=== PATIENT | female | born 1940 | race Caucasian/White ===

== ENCOUNTER 2020-02-11 05:43 | Inpatient (IN) | payer MEDICARE ==
[2020-02-01 15:12] LABS: BASOPHILS # (AUTO) 0.1 X10'3 (0-0.2); BASOPHILS % (AUTO) 0.9 % (0-1); EOSINOPHILS # (AUTO) 0.2 X10'3 (0-0.9); EOSINOPHILS % (AUTO) 2.7 % (0-6); LYMPHOCYTES # (AUTO) 1.8 X10'3 (1.1-4.8); LYMPHOCYTES % (AUTO) 22.4 % (21-51); MEAN CORPUSCULAR HEMOGLOBIN 32.2 PG (27.0-31.0); MEAN CORPUSCULAR HGB CONC 34.2 g/dL (33.0-36.5); MEAN CORPUSCULAR VOLUME 94.1 FL (78-98); MEAN PLATELET VOLUME 8.3 FL (7.4-10.4); MONOCYTES # (AUTO) 0.8 X10'3 (0-0.9); MONOCYTES % (AUTO) 9.8 % (2-12); NEUTROPHILS # (AUTO) 5.2 X10'3 (1.8-7.7); NEUTROPHILS % (AUTO) 64.2 % (42-75); PRE OP HEMATOCRIT 39.2 % (35.0-45.0); PRE OP HEMOGLOBIN 13.4 g/dL (12.0-16.0); PRE OP PLATELET COUNT 288 X10'3 (140-440); RED BLOOD COUNT 4.16 X10'6 (4.20-5.60); RED CELL DISTRIBUTION WIDTH 14.5 % (11.5-14.5)
[2020-02-01 15:22] LABS: ALBUMIN 3.9 G/DL (3.4-5.0); ALKALINE PHOSPHATASE 93 IU/L (46-116); BLOOD UREA NITROGEN 26 MG/DL (7-18); CALCIUM 10.1 MG/DL (8.5-10.1); CHLORIDE 104 MMOL/L (99-107); CREATININE 1.13 MG/DL (0.40-0.90); PRE OP ALT 32 U/L (30-65); PRE OP ANION GAP 9 (8-16); PRE OP AST 30 U/L (10-37); PRE OP BILIRUB, TOTAL 0.6 MG/DL (0.0-1.0); PRE OP GLUCOSE 107 MG/DL (70-104); PRE OP SODIUM 142 MMOL/L (135-145); TOTAL CARBON DIOXIDE 29.1 MMOL/L (24-32); TOTAL PROTEIN 7.9 G/DL (6.4-8.2); eGFR 46 ML/MIN
[2020-02-01 15:28] LABS: PRE OP POTASSIUM 3.2 MMOL/L (3.4-5.1)
[2020-02-11] VITALS (19 sets, daily range): BP systolic 108–178; BP diastolic 44–93
[~2020-02-11] VITALS: Ht 154.9 cm; Wt 65.8 kg
[~2020-02-11 05:43] MED LIST: ACET-2319 PO; ALLO100T PO; AMLO10TA13 PO; ASCO-134 PO; ASPI-611 PO; ATEN-27 PO; ATOR40TA PO; CALC250T2 PO; CHLO25TA10 PO; CHOL400T32 PO; DOCUMENT DATE & TIME OF BETA-BLOCKER PO ONE; GINK120T4 PO; GLUC-95 PO; LOSA50TA3 PO; LUTE40CA PO; LYSI500T40 PO; MAGN400C PO; MULT-1085 PO; POTA20TA19 PO; SERT100T PO; SYN0.112T PO; UBID100C16 PO; VANCOMYCIN INJ 1000 MG in NORMAL SALINE 250ml IV.SOLN IV ONE; VITA-268 PO; VITA400C67 PO; ZINC50TA67 PO; cefazolin/dext.iso 2gm/100ml 100 ML IV ONE; famotidine 20mg tablet PO ONE; ringers solution, lacted 1,000 ML IV SCH; tranexamic acid inj. 660 MG in normal saline 100ml IV soln 100 ML IV ONE
[2020-02-11] MEDS ORDERED: ketorolac trometh. 30mg/ml inj. ONE (06:48)
[2020-02-11] MEDS ORDERED: ROPIVAcaine 0.5% (5mg/ml) 30ml vial ONE ×2 (06:48→11:01)
[2020-02-11] MEDS ORDERED: midazolam 2 mg/2 ml injection ONE (08:25)
[2020-02-11] MEDS ORDERED: fentaNYL/PF 50MCG/1 ML 2ML syringe ONE (08:25)
[2020-02-11] MEDS ORDERED: tranexamic acid inj. 650 MG in normal saline 100ml IV soln 100 ML IV ONE ×3 (08:35→14:00)
[2020-02-11] MEDS ORDERED: sevoflurane 250ml liquid IH ONE (09:16)
[2020-02-11] MEDS ORDERED: ringers solution, lacted 1,000 ML IV SCH (10:34)
[2020-02-11] MEDS ORDERED: ondansetron/PF 4mg/2ml inj IV PRN (10:35)
[2020-02-11] MEDS ORDERED: ROPIVAcaine 0.2% (10 MG/5 ML) BOLUS INJECTION INTERSCALE PRN (10:35)
[2020-02-11] MEDS ORDERED: HYDROmorphone inj. 0.5 MG/0.5 ML DISP.SYRIN IV PRN ×2 (10:35→11:30)
[2020-02-11] MEDS ORDERED: morphine 2 MG/ML inj. syringe IV PRN (10:35)
[2020-02-11] MEDS ORDERED: propofol inj 20 ML IV ONE (11:01)
[2020-02-11] MEDS ORDERED: dexamethasone sod phosphate 4mg/ml inj. ONE (11:01)
[2020-02-11] MEDS ORDERED: glycopyrrolate 0.2mg/ml inj ONE (11:01)
[2020-02-11] MEDS ORDERED: ondansetron/PF 4mg/2ml inj ONE (11:01)
[2020-02-11] MEDS ORDERED: LIDOcaine 1%/PF 5ML 10 MG/ML VIAL ONE (11:01)
--- NOTE | 2020-02-11 11:13 | NUR ---
Received from OR via BED, accompanied by Anesthesiologist DR BURNETTE and report given by Anesthesiologist. PT DROWSY, DENIES PAIN, RIGHT SHOULDER W/DRSG, ICE PACK, SHOULDER WRAP, SLING CDI, ISB CATHETER INTACT. Addendum: 02/11/20 at 1143 by Kaitlin Galvez RN Amended: Links added.
[2020-02-11] MEDS ORDERED: diphenhydrAMINE 25mg capsule PO PRN ×2 (11:30)
[2020-02-11] MEDS ORDERED: bisacodyl 10mg suppository rectal RC PRN (11:30)
[2020-02-11] MEDS ORDERED: oxyCODONE IR 5mg (immed. release) tablet PO PRN (11:30)
[2020-02-11] MEDS ORDERED: acetaminophen 325mg tablet PO PRN (11:30)
[2020-02-11] MEDS ORDERED: magnesium hydroxide 30ml (MOM) UD suspension PO PRN (11:30)
[2020-02-11] MEDS ORDERED: HYDROmorphone 1 mg/ml syringe IV PRN (11:30)
[2020-02-11] MEDS ORDERED: hydrALAZINE 20mg/ml inj. IV ONE ×2 (11:55)
[2020-02-11] MEDS: ROPIVAcaine 0.2%/PF PUMP/bolus 550 ML ADDCANAL SCH (12:18)
--- NOTE | 2020-02-11 12:33 | NUR ---
Report called to receiving nurse. Transferred via BED, 1 BAG OF PERSONAL Belongings, CPAP, UPPER DENTURES SENT W/PT TO ROOM 4022B, TOBACCO GROWER AT BEDSIDE TO RECEIVE PT, BLL, CALL LIGHT GIVEN, SIDE RAILS UP X 2. Special Issues communicated to receiving nurse. YES. Addendum: 02/11/20 at 1249 by Kaitlin Galvez RN Amended: Links added.
[2020-02-11] MEDS: potassium cl 20mEq in 1/2 NS 1,000 ML IV SCH ×2 (16:56→19:27)
[2020-02-11] MEDS: ceFAZolin 1GM/D5W- ADD-VANTAGE 50 ML IV SCH (16:57)
--- NOTE | 2020-02-11 18:18 | NUR ---
Problems reprioritized. Patient report given, questions answered & plan of care reviewed with Arelis YOUNG.
--- NOTE | 2020-02-11 18:40 | NUR ---
Patient in room ORTHO 4022. I have received report from Emerald YOUNG and had the opportunity to ask questions and assume patient care.
[2020-02-11] MEDS ORDERED: vancomycin/NS 1 GM ADD-VANTAGE 250 ML IV SCH (20:00)
[2020-02-11] MEDS: aspirin 81mg tablet.DR PO SCH (20:18)
[2020-02-11] MEDS: losartan 50mg tablet PO SCH (20:18)
[2020-02-11] MEDS: acetaminophen 325mg tablet PO SCH (20:18)
[2020-02-11] MEDS: sennosides 8.6mg tablet PO SCH (20:19)
[2020-02-11] MEDS: atenolol 25mg tablet PO SCH (20:19)
[2020-02-11] MEDS: amLODIPine 5mg tablet PO SCH (20:19)
[2020-02-12] MEDS: ceFAZolin 1GM/D5W- ADD-VANTAGE 50 ML IV SCH (00:12)
[2020-02-12] MEDS: ROPIVAcaine 0.2%/PF PUMP/bolus 550 ML ADDCANAL SCH ×3 (00:15→05:09)
[2020-02-12 02:00] VITALS: BP 126/62
[2020-02-12] MEDS: oxyCODONE IR 5mg (immed. release) tablet PO PRN ×3 (02:43→12:47)
[2020-02-12] MEDS: potassium cl 20mEq in 1/2 NS 1,000 ML IV SCH ×2 (03:30→11:26)
[2020-02-12] MEDS: ondansetron/PF 4mg/2ml inj IV PRN ×2 (05:43→11:22)
[2020-02-12 06:00] VITALS: BP 132/63
--- NOTE | 2020-02-12 06:15 | NUR ---
Problems reprioritized. Patient report given, questions answered & plan of care reviewed with Emerald YOUNG.
--- NOTE | 2020-02-12 06:22 | NUR ---
Patient in room ORTHO 4022. I have received report from Arelis YOUNG and had the opportunity to ask questions and assume patient care.
[2020-02-12 06:45] LABS: BASOPHILS % (AUTO) 0.3 % (0-1); EOSINOPHILS % (AUTO) 0.2 % (0-6); HEMATOCRIT 32.7 % (35.0-45.0); HEMOGLOBIN 11.3 g/dl (12.0-16.0); LYMPHOCYTES # (AUTO) 1.2 X10'3 (1.1-4.8); LYMPHOCYTES % (AUTO) 9.5 % (21-51); MEAN CORPUSCULAR HEMOGLOBIN 32.2 PG (27.0-31.0); MEAN CORPUSCULAR HGB CONC 34.4 g/dL (33.0-36.5); MEAN CORPUSCULAR VOLUME 93.6 FL (78-98); MONOCYTES # (AUTO) 1.1 X10'3 (0-0.9); MONOCYTES % (AUTO) 8.9 % (2-12); NEUTROPHILS # (AUTO) 10.4 X10'3 (1.8-7.7); NEUTROPHILS % (AUTO) 81.1 % (42-75); PLATELET COUNT 247 X10'3 (140-440); RED BLOOD COUNT 3.49 X10'6 (4.20-5.60); RED CELL DISTRIBUTION WIDTH 14.4 % (11.5-14.5); WHITE BLOOD COUNT 12.9 X10'3 (4.5-11.0)
[2020-02-12 06:47] LABS: ANION GAP 10 (8-16); CHLORIDE 101 MMOL/L (99-107); POTASSIUM 3.4 MMOL/L (3.5-5.1); SODIUM 136 MMOL/L (135-145); TOTAL CARBON DIOXIDE 25.1 MMOL/L (24-32)
[2020-02-12] MEDS: metoclopramide 5 mg/ml inj IV PRN (07:36)
[2020-02-12] MEDS: multivitamins, therapeutics tablet PO SCH (07:41)
[2020-02-12] MEDS: chlorthalidone 25mg tablet PO SCH (07:41)
[2020-02-12] MEDS: calcium carbonate 500mg tablet PO SCH (07:41)
[2020-02-12] MEDS: vitamin E 400 unit capsule PO SCH (07:41)
[2020-02-12] MEDS: aspirin 325mg tablet PO SCH (07:41)
[2020-02-12] MEDS: levoTHYROXINE 100mcg tablet PO SCH (07:41)
[2020-02-12] MEDS: allopurinol 100mg tablet PO SCH (07:41)
[2020-02-12] MEDS: vitamin B comp w/Vit. C tab 1 TAB TABLET PO SCH (07:41)
[2020-02-12] MEDS: potassium Cl 20 mEq SR tablet PO SCH (07:42)
[2020-02-12] MEDS: ascorbic acid 500mg tablet PO SCH (07:42)
[2020-02-12] MEDS ORDERED: LYSINE HCL 500 MG PO SCH (08:00)
[2020-02-12] MEDS: sertraline 50mg tablet PO SCH (08:00)
[2020-02-12] MEDS ORDERED: non-formulary drug (Glucosamine HCl/Chondr Su A Na (Cidaflex Tablet) 1 TAB) PO SCH (08:00)
[2020-02-12] MEDS ORDERED: non-formulary drug (Ubidecarenone (Coq-10) 300 MG) PO SCH (08:00)
[2020-02-12 09:51] VITALS: BP 150/56
[2020-02-12 14:00] VITALS: BP 172/82
--- NOTE | 2020-02-12 14:02 | NUR ---
Joint consult: Attempted visit with pt at bedside however pt not available. Written protein education and RD contact information left at bedside. Pt currently on regular diet documented with average 50-75% PO intake of meals and 100% PO intake of milk. Will continue to follow and monitor need for additional protein. Addendum: 02/12/20 at [address] Amended: Links added.
--- NOTE | 2020-02-12 15:02 | NUR ---
Patient in room ORTHO 4022. I have received report from [place] and had the opportunity to ask questions and assume patient care.
[2020-02-12] MEDS ORDERED: scopolamine 1.5mg patch.TD72 TD ONE (15:10)
[2020-02-12] MEDS ORDERED: potassium Cl 20 mEq SR tablet PO PRN ×2 (15:10)
[2020-02-12] MEDS ORDERED: potassium CL 10mEq/100ml bag 100 ML IV PRN (15:10)
[2020-02-12 18:00] VITALS: BP 174/72
--- NOTE | 2020-02-12 18:00 | NUR ---
Problems reprioritized. Patient report given, questions answered & plan of care reviewed with Arelis.
--- NOTE | 2020-02-12 18:25 | NUR ---
Patient in room ORTHO 4022. I have received report from Christi YOUNG and had the opportunity to ask questions and assume patient care.
[2020-02-12] MEDS: acetaminophen 325mg tablet PO SCH (20:43)
[2020-02-12] MEDS: amLODIPine 5mg tablet PO SCH (20:44)
[2020-02-12] MEDS: atenolol 25mg tablet PO SCH (20:44)
[2020-02-12] MEDS: losartan 50mg tablet PO SCH (20:44)
[2020-02-12] MEDS: aspirin 81mg tablet.DR PO SCH (20:44)
[2020-02-12] MEDS: sennosides 8.6mg tablet PO SCH (20:44)
[2020-02-12 22:00] VITALS: BP 169/70
[2020-02-12] MEDS: HYDROcodone/acetaminophen 10/325mg tab PO PRN (23:24)
[2020-02-13] MEDS: HYDROcodone/acetaminophen 10/325mg tab PO PRN (04:45)
[2020-02-13 06:00] VITALS: BP 160/62
[2020-02-13 06:06] LABS: BASOPHILS % (AUTO) 0.2 % (0-1); EOSINOPHILS % (AUTO) 0.2 % (0-6); HEMATOCRIT 33.5 % (35.0-45.0); HEMOGLOBIN 11.5 g/dl (12.0-16.0); LYMPHOCYTES % (AUTO) 7.5 % (21-51); MEAN CORPUSCULAR HEMOGLOBIN 31.7 PG (27.0-31.0); MEAN CORPUSCULAR HGB CONC 34.2 g/dL (33.0-36.5); MEAN CORPUSCULAR VOLUME 92.8 FL (78-98); MEAN PLATELET VOLUME 9.6 FL (7.4-10.4); MONOCYTES % (AUTO) 7.5 % (2-12); NEUTROPHILS # (AUTO) 11.5 X10'3 (1.8-7.7); NEUTROPHILS % (AUTO) 84.6 % (42-75); PLATELET COUNT 230 X10'3 (140-440); RED BLOOD COUNT 3.61 X10'6 (4.20-5.60); RED CELL DISTRIBUTION WIDTH 14.6 % (11.5-14.5); WHITE BLOOD COUNT 13.6 X10'3 (4.5-11.0)
--- NOTE | 2020-02-13 06:28 | NUR ---
Problems reprioritized. Patient report given, questions answered & plan of care reviewed with Yany YOUNG.
[2020-02-13] MEDS: potassium Cl 20 mEq SR tablet PO SCH (09:33)
[2020-02-13] MEDS: levoTHYROXINE 100mcg tablet PO SCH (09:33)
[2020-02-13] MEDS: chlorthalidone 25mg tablet PO SCH (09:33)
[2020-02-13] MEDS: vitamin B comp w/Vit. C tab 1 TAB TABLET PO SCH (09:34)
[2020-02-13] MEDS: ascorbic acid 500mg tablet PO SCH (09:34)
[2020-02-13] MEDS: multivitamins, therapeutics tablet PO SCH (09:34)
[2020-02-13] MEDS: calcium carbonate 500mg tablet PO SCH (09:34)
[2020-02-13] MEDS: aspirin 325mg tablet PO SCH (09:35)
[2020-02-13] MEDS: allopurinol 100mg tablet PO SCH (09:35)
[2020-02-13] MEDS: sertraline 50mg tablet PO SCH (09:35)
[2020-02-13] MEDS: vitamin E 400 unit capsule PO SCH (09:35)
[2020-02-13] MEDS: ROPIVAcaine 0.2%/PF PUMP/bolus 550 ML ADDCANAL SCH (09:44)
[2020-02-13] MEDS: ondansetron/PF 4mg/2ml inj IV PRN (09:46)
[2020-02-13 10:00] VITALS: BP 163/75
[2020-02-13] MEDS: metoclopramide 5 mg/ml inj IV PRN (10:23)
--- NOTE | 2020-02-13 13:45 | NUR ---
Received discharge orders from Dr. Gramajo. IV dc'd by Blanche [employer] dry cell assembly machine tender. Dressing change to Right Shoulder earlier today. Pt did not want to get Ropivicaine refilled by the Pharmacy prior to discharge. Reviewed discharge orders. Pt dc'd via w/c to private vehicle.
--- NOTE | 2020-02-14 14:42 | NUR ---
Case Management DC follow up: spoke to pt sister/Sierra via telephone. Reports feeling , Denies CP, emergent general pain, SOB, respiratory distress, NV, dizziness, syncope episodes, abd pain, C[place], blurry vision. Verbalizes understanding of medications and why prescribed. Taking as ordered, no ase noted r/t polypharmacy/new meds. verbalizes understanding of s/s that would warrant 9-11/ER visit for evaluation. Working w/ [facility] PT at this time. On Q pump DCd at Discharge. verbalizes understanding of post op after care/compiant. No s/s infection at surg site noted. No acute swelling, redness pain to RUE. elevate as needed. Acknowledges importance of scheduling/keeping appointments w/PCP/[facility] 03/10/2020/referrals/specialists/Stephanie 02/28/2020. Needs met, questions answered at DC. No further questions at this time.
== END 2020-02-13 13:45 | disposition home health service (06) | DRG 483 ==
LOC: PAS IN 05:43 → UNDOADMIN 05:43 → EDSTATUS 07:30 → PAS IN 11:27 → ORTHO 4S 12:36 → PAS IN 12:36
PROVIDERS: ADMIT Orthopaedic Surgery; ATTEND Orthopaedic Surgery
PROC: 0RRJ00Z Replacement of Right Shoulder Joint with Reverse Ball and Socket Synthetic Substitute, Open Approach (ICD-10-PCS; principal; 2020-02-11 09:16)
DX: M75.121 Complete rotator cuff tear or rupture of right shoulder, not specified as traumatic (principal); D62 Acute posthemorrhagic anemia; M19.011 Primary osteoarthritis, right shoulder; M25.511 Pain in right shoulder; I10 Essential (primary) hypertension
CPT/HCPCS: 36415; 80051; 80053; 82948; 85025; 87081; 93005; 97110; 97112; 97116; 97161; 97530; A4565; A4618; A7000; C1776; G0378; J0360; J0690; J1100; J1170; J1885; J2250; J2270; J2405; J2704; J2765; J2795; J3010; J3370; J3480; J3490; J7120

== ENCOUNTER 2023-07-15 11:22 | Day surgery (SDC) | payer MEDICARE ==
[2023-07-11 11:48] LABS: APTT 23 SECONDS (22-32); PROTHROMBIN TIME 10.7 SECONDS (9.0-12.0)
[2023-07-11 11:49] LABS: ALBUMIN 3.9 G/DL (3.4-5.0); ANION GAP 8 (8-16); BLOOD UREA NITROGEN 22 MG/DL (7-18); BUN/CREATININE RATIO 23.4 (10.0-20.0); CALCIUM 9.6 MG/DL (8.5-10.1); CHLORIDE 105 MMOL/L (99-107); CHOL/HDL RATIO 2.2 (0.00-4.99); CHOLESTEROL 158 MG/DL (0-200); CREATININE 0.94 MG/DL (0.40-0.90); GLUCOSE 104 MG/DL (70-104); HDL CHOLESTEROL 71 MG/DL (35-60); LDL CHOLESTEROL 68 MG/DL (50-100); POTASSIUM 3.7 MMOL/L (3.5-5.1); SODIUM 143 MMOL/L (135-145); TOTAL CARBON DIOXIDE 30.4 MMOL/L (24-32); TRIGLYCERIDES 66 MG/DL (20-135); eGFR 57 ML/MIN
[2023-07-11 11:56] LABS: BASOPHILS # (AUTO) 0.1 X10'3 (0-0.2); BASOPHILS % (AUTO) 0.6 % (0-1); EOSINOPHILS # (AUTO) 0.3 X10'3 (0-0.9); EOSINOPHILS % (AUTO) 3.4 % (0-6); HEMATOCRIT 42.6 % (35.0-45.0); HEMOGLOBIN 14.2 g/dl (12.0-16.0); LYMPHOCYTES # (AUTO) 1.1 X10'3 (1.1-4.8); LYMPHOCYTES % (AUTO) 13.6 % (21-51); MEAN CORPUSCULAR HEMOGLOBIN 31.5 PG (27.0-31.0); MEAN CORPUSCULAR HGB CONC 33.3 g/dL (33.0-36.5); MEAN CORPUSCULAR VOLUME 94.6 FL (78-98); MEAN PLATELET VOLUME 8.2 FL (7.4-10.4); MONOCYTES # (AUTO) 0.7 X10'3 (0-0.9); MONOCYTES % (AUTO) 9.1 % (2-12); NEUTROPHILS # (AUTO) 5.7 X10'3 (1.8-7.7); NEUTROPHILS % (AUTO) 73.3 % (42-75); PLATELET COUNT 217 X10'3 (140-440); WHITE BLOOD COUNT 7.8 X10'3 (4.5-11.0)
[~2023-07-15] VITALS: Ht 177.8 cm; Wt 59.1 kg
[2023-07-15] VITALS (14 sets, daily range): BP systolic 162–203; BP diastolic 83–106; PULSE 61–86; RESP 12–20; TEMP 98.4; O2SAT 92–94
[~2023-07-15 11:22] MED LIST changes: -ACET-2319 PO; -ALLO100T PO; +ALLO300T2 PO; -AMLO10TA13 PO; +AMLO5TAB16 PO; -ASCO-134 PO; +ASCO500C17 PO; -ASPI-611 PO; +ASPI81TA52 PO; +ATEN-169 PO; -ATEN-27 PO; -ATOR40TA PO; +ATOR40TA72 PO; +CALC-825 PO; -CALC250T2 PO; -CHOL400T32 PO; -DOCUMENT DATE & TIME OF BETA-BLOCKER PO ONE; -GINK120T4 PO; -GLUC-95 PO; +LEVO50TA8 PO; +LOSA100T58 PO; -LOSA50TA3 PO; -LUTE40CA PO; -LYSI500T40 PO; -MAGN400C PO; -MULT-1085 PO; +MULT-227 PO; +OMEG10006 PO; +POTA-207 PO; -POTA20TA19 PO; +SERT-433 PO; -SERT100T PO; -SYN0.112T PO; -UBID100C16 PO; -VANCOMYCIN INJ 1000 MG in NORMAL SALINE 250ml IV.SOLN IV ONE; -VITA-268 PO; -ZINC50TA67 PO; -cefazolin/dext.iso 2gm/100ml 100 ML IV ONE; -famotidine 20mg tablet PO ONE; -ringers solution, lacted 1,000 ML IV SCH; -tranexamic acid inj. 660 MG in normal saline 100ml IV soln 100 ML IV ONE
[2023-07-15] MEDS ORDERED: diphenhydrAMINE 25mg capsule PO PRN (11:40)
[2023-07-15] MEDS ORDERED: normal saline 1,000 ML IV SCH (11:40)
[2023-07-15] MEDS ORDERED: LORazepam 0.5 MG tablet PO PRN (11:40)
[2023-07-15] MEDS ORDERED: CLON0.5T54 PO (12:18)
[2023-07-15] MEDS ORDERED: SERT-434 PO (12:18)
[2023-07-15] MEDS ORDERED: DOCU-148 PO (12:18)
[2023-07-15] MEDS ORDERED: MORP-92 PO (12:18)
[2023-07-15] MEDS ORDERED: GABA-535 PO (12:18)
[2023-07-15] MEDS ORDERED: HYDR-3972 PO (12:18)
[2023-07-15] MEDS ORDERED: LEVO100T9 PO (12:18)
[2023-07-15] MEDS ORDERED: LIDOcaine 1% (10mg/ml) 2ml vial ONE (12:56)
[2023-07-15] MEDS ORDERED: nitroGLYCERIN-Tridil 50MG/D5W 250 ML IV ONE (12:56)
[2023-07-15] MEDS ORDERED: verapamil 2.5 mg/ml inj IV ONE (12:56)
[2023-07-15] MEDS ORDERED: midazolam 1 mg/ML 2ml injection ONE (12:57)
[2023-07-15] MEDS ORDERED: heparin 1,000unit/ml 10ml vial 10 ML ONE (12:57)
[2023-07-15] MEDS ORDERED: iohexol 350MG/ML 100ml bottle IV ONE (12:57)
[2023-07-15] MEDS ORDERED: fentaNYL/PF 50MCG/1 ML 2ML syringe ONE (12:57)
--- NOTE | 2023-07-15 13:30 | NUR ---
Spoke with Dr. Velma Larios re pt going back home to [facility] and not having anyone to stay with her. Pt states she has a medical alert necklace and daughter states she will call and check in on pt multiple times throughout today and tonight. Dr. Larios okayed to proceed with procedure.
[2023-07-15 15:07] LABS: ISTAT HGB ART 12.6 g/dl (12.0-16.0); ISTAT Hct ART 37 %PCV (35-45); ISTAT O2 SATURATION ARTERIAL 83 % (95-98); ISTAT SOURCE ART
[2023-07-15] MEDS ORDERED: HYDROcodone/acetaminophen 5mg/325mg tablet PO PRN (15:40)
[2023-07-15] MEDS ORDERED: HYDROcodone/acetaminophen 10/325mg tab PO PRN (15:40)
[2023-07-15] MEDS ORDERED: hydrALAZINE 20mg/ml inj. IV ONE ×2 (15:50→18:15)
[2023-07-15 16:21] LABS: ISTAT HGB MIX 12.9 g/dl (12.0-16.0); ISTAT Hct MIX 38 %PCV (35-45); ISTAT O2 SATURATION MIX VENOUS 57 % (60-80); ISTAT SOURCE VEN
== END 2023-07-15 18:50 | disposition home or self-care (01) ==
LOC: SSTAY O 11:22
PROVIDERS: ATTEND Student in an Organized Health Care Education/Training Program
DX: I35.2 Nonrheumatic aortic (valve) stenosis with insufficiency (principal); I27.20 Pulmonary hypertension, unspecified; I65.29 Occlusion and stenosis of unspecified carotid artery; I10 Essential (primary) hypertension; E78.5 Hyperlipidemia, unspecified; E03.9 Hypothyroidism, unspecified; G47.33 Obstructive sleep apnea (adult) (pediatric); Z88.5 Allergy status to narcotic agent; Z88.1 Allergy status to other antibiotic agents; Z91.048 Other nonmedicinal substance allergy status; Z79.899 Other long term (current) drug therapy
CPT/HCPCS: 36415; 80048; 80061; 82803; 85014; 85025; 85610; 85730; 93460; 99152; 99153; J0360; J1644; J2250; J3010; J3490; J7030; Q9967; A6258; A6402; C1751; C1894

== ENCOUNTER 2025-01-25 10:40 | Outpatient (CLI) | payer MEDICARE ==
[~2025-01-25 10:40] MED LIST changes: -ASPI81TA52 PO; -CHLO25TA10 PO; +DOCU-148 PO; +GABA-535 PO; +HYDR-3972 PO; +IODIXANOL 320 MG/ML INFUS..BTL 100ML IV ONE; +LEVO100T9 PO; -LEVO50TA8 PO; +MORP-92 PO; -OMEG10006 PO; -POTA-207 PO; -SERT-433 PO; +SERT-434 PO; +TRIA1TAB3 PO; -VITA400C67 PO
[2025-01-25] MEDS ORDERED: POTA-192 PO (16:39)
[2025-01-25] MEDS ORDERED: FURO-150 PO (16:39)
== END 2025-01-25 23:59 | disposition home or self-care (01) ==
LOC: RAD 10:40
PROVIDERS: ATTEND Internal Medicine Cardiovascular Disease
DX: S22.000A Wedge compression fracture of unspecified thoracic vertebra, initial encounter for closed fracture (principal); I35.0 Nonrheumatic aortic (valve) stenosis; R06.02 Shortness of breath; S32.000A Wedge compression fracture of unspecified lumbar vertebra, initial encounter for closed fracture; I65.29 Occlusion and stenosis of unspecified carotid artery; M85.88 Other specified disorders of bone density and structure, other site; K44.9 Diaphragmatic hernia without obstruction or gangrene; K76.89 Other specified diseases of liver; K86.2 Cyst of pancreas; X58.XXXA Exposure to other specified factors, initial encounter; Y93.89 Activity, other specified; Y92.89 Other specified places as the place of occurrence of the external cause; Y99.8 Other external cause status
CPT/HCPCS: 71046; 71275; 74174; 75572; Q9967

== ENCOUNTER 2025-01-25 15:12 | Observation (INO) | payer MEDICARE ==
[~2025-01-25] VITALS: Ht 147.3 cm; Wt 54.5 kg
[~2025-01-25 15:12] MED LIST changes: -IODIXANOL 320 MG/ML INFUS..BTL 100ML IV ONE
[2025-01-25] MEDS ORDERED: esmolol/sodium cl bag 250 ML IV SCH (15:55)
[2025-01-25 16:07] LABS: BASOPHILS % (AUTO) 0.4 % (0-1); EOSINOPHILS # (AUTO) 0.2 X10'3 (0-0.9); HEMATOCRIT 36.7 % (35.0-45.0); HEMOGLOBIN 11.6 g/dl (12.0-16.0); LYMPHOCYTES % (AUTO) 12.9 % (21-51); MEAN CORPUSCULAR HEMOGLOBIN 28.4 PG (27.0-31.0); MEAN CORPUSCULAR HGB CONC 31.8 g/dL (33.0-36.5); MEAN CORPUSCULAR VOLUME 89.3 FL (78-98); MEAN PLATELET VOLUME 7.5 FL (7.4-10.4); MONOCYTES # (AUTO) 0.7 X10'3 (0-0.9); MONOCYTES % (AUTO) 8.7 % (2-12); NEUTROPHILS # (AUTO) 5.8 X10'3 (1.8-7.7); PLATELET COUNT 290 X10'3 (140-440); RED BLOOD COUNT 4.11 X10'6 (4.20-5.60); RED CELL DISTRIBUTION WIDTH 17.7 % (11.5-14.5); WHITE BLOOD COUNT 7.8 X10'3 (4.5-11.0)
[2025-01-25] MEDS: losartan 50mg tablet PO STA (16:28)
[2025-01-25] MEDS: amLODIPine 5mg tablet PO ONE (16:29)
[2025-01-25] MEDS: atenolol 25mg tablet PO ONE (16:29)
[2025-01-25 16:39] LABS: ALANINE AMINOTRANSFERASE 36 U/L (12-78); ALBUMIN 3.7 G/DL (3.4-5.0); ALBUMIN/GLOBULIN RATIO 1.1 (1.1-1.5); ALKALINE PHOSPHATASE 122 IU/L (46-116); ANION GAP 7 (8-16); ASPARTATE AMINO TRANSFERASE 22 U/L (10-37); BILIRUBIN,TOTAL 0.3 MG/DL (0.1-1.0); BLOOD UREA NITROGEN 37 MG/DL (7-18); BUN/CREATININE RATIO 27.6 (10.0-20.0); CALCIUM 10.2 MG/DL (8.5-10.1); CHLORIDE 103 MMOL/L (99-107); CREATININE 1.34 MG/DL (0.40-0.90); GLUCOSE 101 MG/DL (70-104); POTASSIUM 3.7 MMOL/L (3.5-5.1); SODIUM 143 MMOL/L (135-145); TOTAL CARBON DIOXIDE 33.5 MMOL/L (24-32); TOTAL PROTEIN 7.2 G/DL (6.4-8.2); eCRCL 20 ML/MIN; eGFR 38 ML/MIN
[2025-01-25] MEDS ORDERED: FURO-150 PO (16:39)
[2025-01-25] MEDS ORDERED: POTA-192 PO (16:39)
[2025-01-25 16:46] LABS: PRO BRAIN NATRIURETIC PEPTIDE 1314 PG/ML (0-450)
[2025-01-25 17:01] LABS: PROTHROMBIN TIME 10.6 SECONDS (9.0-12.0)
[2025-01-25] MEDS ORDERED: potassium Cl 40MEQ/1/2NS 520ml 520 ML IV PRN (17:45)
[2025-01-25] MEDS ORDERED: acetaminophen 325mg tablet PO PRN (17:45)
[2025-01-25] MEDS ORDERED: ondansetron/PF 4mg/2ml inj IV PRN (17:45)
[2025-01-25] MEDS ORDERED: magnesium Cl slow-release 64mg tablet PO PRN (17:45)
[2025-01-25] MEDS ORDERED: magnesium sulf-water 2g/50mL 50 ML IV PRN (17:45)
[2025-01-25] MEDS ORDERED: magnesium sulf-water 4G/100mL 100 ML IV PRN (17:45)
[2025-01-25] MEDS ORDERED: HYDROcodone/acetaminophen 5mg/325mg tablet PO PRN (17:45)
[2025-01-25] MEDS ORDERED: potassium Cl 20 mEq SR tablet PO PRN ×2 (17:45)
[2025-01-25] MEDS ORDERED: amLODIPine 5mg tablet PO SCH (18:05)
[2025-01-25] MEDS: levoTHYROXINE 100mcg tablet PO SCH (18:30)
[2025-01-25] MEDS: allopurinol 300 MG tablet PO SCH (18:30)
[2025-01-25] MEDS: morphine ER 15mg tablet PO SCH (18:30)
[2025-01-25] MEDS: docusate sod 100mg capsule PO SCH (19:35)
[2025-01-25] MEDS: K and/or MAG REPLACEMENT MC SCH (19:36)
[2025-01-25] MEDS: hydrALAZINE 20mg/ml inj. IV SCH (19:59)
[2025-01-25] MEDS: gabapentin 400mg capsule PO SCH (20:47)
[2025-01-25] MEDS ORDERED: atenolol 25mg tablet PO SCH (21:00)
[2025-01-26 03:56] LABS: BASOPHILS # (AUTO) 0.1 X10'3 (0-0.2); BASOPHILS % (AUTO) 0.9 % (0-1); EOSINOPHILS # (AUTO) 0.3 X10'3 (0-0.9); HEMATOCRIT 31.7 % (35.0-45.0); HEMOGLOBIN 10.4 g/dl (12.0-16.0); LYMPHOCYTES # (AUTO) 0.8 X10'3 (1.1-4.8); LYMPHOCYTES % (AUTO) 10.3 % (21-51); MEAN CORPUSCULAR HEMOGLOBIN 28.5 PG (27.0-31.0); MEAN CORPUSCULAR HGB CONC 32.7 g/dL (33.0-36.5); MEAN CORPUSCULAR VOLUME 87.3 FL (78-98); MEAN PLATELET VOLUME 7.6 FL (7.4-10.4); MONOCYTES # (AUTO) 0.7 X10'3 (0-0.9); MONOCYTES % (AUTO) 8.8 % (2-12); NEUTROPHILS # (AUTO) 5.6 X10'3 (1.8-7.7); PLATELET COUNT 294 X10'3 (140-440); RED BLOOD COUNT 3.63 X10'6 (4.20-5.60); RED CELL DISTRIBUTION WIDTH 17.6 % (11.5-14.5); WHITE BLOOD COUNT 7.4 X10'3 (4.5-11.0)
[2025-01-26 04:08] LABS: ANION GAP 4 (8-16); BLOOD UREA NITROGEN 31 MG/DL (7-18); BUN/CREATININE RATIO 28.7 (10.0-20.0); CALCIUM 9.6 MG/DL (8.5-10.1); CHLORIDE 102 MMOL/L (99-107); CREATININE 1.08 MG/DL (0.40-0.90); GLUCOSE 111 MG/DL (70-104); MAGNESIUM 1.9 MG/DL (1.5-2.4); POTASSIUM 3.6 MMOL/L (3.5-5.1); SODIUM 139 MMOL/L (135-145); TOTAL CARBON DIOXIDE 33.1 MMOL/L (24-32); eCRCL 25 ML/MIN; eGFR 48 ML/MIN
[2025-01-26] MEDS: losartan 50mg tablet PO SCH (08:32)
[2025-01-26] MEDS: ascorbic acid 500mg tablet PO SCH (08:32)
[2025-01-26] MEDS: sertraline 50mg tablet PO SCH (08:32)
[2025-01-26] MEDS: atorvastatin 20mg tablet PO SCH (08:33)
[2025-01-26] MEDS: multivitamins, therapeutics tablet PO SCH (08:33)
[2025-01-26] MEDS: amLODIPine 5mg tablet PO SCH (08:33)
[2025-01-26 12:00] VITALS: RESP 14; O2SAT 95
[2025-01-26 12:55] VITALS: BP 114/57; PULSE 93; RESP 15; TEMP 98.1; O2SAT 94
[2025-01-26 15:43] VITALS: BP 108/60; PULSE 90; RESP 12; TEMP 98.3; O2SAT 94
[2025-01-26] MEDS ORDERED: atenolol 25mg tablet PO SCH (21:00)
== END 2025-01-26 17:15 | disposition home or self-care (01) ==
LOC: ER 15:13 → INTOOBSV 17:59 → ED HOLD 17:59
PROVIDERS: ADMIT Internal Medicine; ATTEND Internal Medicine
DX: I71.019 Dissection of thoracic aorta, unspecified (principal); I35.0 Nonrheumatic aortic (valve) stenosis; E03.9 Hypothyroidism, unspecified; M10.9 Gout, unspecified; I11.0 Hypertensive heart disease with heart failure; I50.9 Heart failure, unspecified; K44.9 Diaphragmatic hernia without obstruction or gangrene; M48.50XA Collapsed vertebra, not elsewhere classified, site unspecified, initial encounter for fracture; E27.8 Other specified disorders of adrenal gland; Z88.5 Allergy status to narcotic agent; Z88.8 Allergy status to other drugs, medicaments and biological substances; Z79.899 Other long term (current) drug therapy
CPT/HCPCS: 71046; 71275; 74174; 75572; 80048; 80053; 83735; 83880; 84484; 85610; 93005; 99285; G0378; Q9967; 36415; 85025; 87081; J0360

== ENCOUNTER → 2025-01-27 | Outpatient (CLI) | payer MEDICARE ==
[2025-01-25 11:31] LABS: BASOPHILS % (AUTO) 0.5 % (0-1); EOSINOPHILS # (AUTO) 0.3 X10'3 (0-0.9); EOSINOPHILS % (AUTO) 3.6 % (0-6); HEMATOCRIT 34.3 % (35.0-45.0); HEMOGLOBIN 11.2 g/dl (12.0-16.0); LYMPHOCYTES # (AUTO) 1.2 X10'3 (1.1-4.8); LYMPHOCYTES % (AUTO) 15.3 % (21-51); MEAN CORPUSCULAR HEMOGLOBIN 28.7 PG (27.0-31.0); MEAN CORPUSCULAR HGB CONC 32.8 g/dL (33.0-36.5); MEAN CORPUSCULAR VOLUME 87.7 FL (78-98); MEAN PLATELET VOLUME 7.8 FL (7.4-10.4); MONOCYTES # (AUTO) 0.7 X10'3 (0-0.9); MONOCYTES % (AUTO) 9.1 % (2-12); NEUTROPHILS # (AUTO) 5.5 X10'3 (1.8-7.7); NEUTROPHILS % (AUTO) 71.5 % (42-75); PLATELET COUNT 341 X10'3 (140-440); RED BLOOD COUNT 3.91 X10'6 (4.20-5.60); RED CELL DISTRIBUTION WIDTH 17.6 % (11.5-14.5); WHITE BLOOD COUNT 7.7 X10'3 (4.5-11.0)
[2025-01-25 11:42] LABS: APTT 27 SECONDS (22-32); PROTHROMBIN TIME 10.4 SECONDS (9.0-12.0)
[2025-01-25 13:02] LABS: ALANINE AMINOTRANSFERASE 31 U/L (12-78); ALBUMIN 3.7 G/DL (3.4-5.0); ALKALINE PHOSPHATASE 120 IU/L (46-116); ANION GAP 9 (8-16); ASPARTATE AMINO TRANSFERASE 30 U/L (10-37); BILIRUBIN,TOTAL 0.2 MG/DL (0.1-1.0); BLOOD UREA NITROGEN 37 MG/DL (7-18); BUN/CREATININE RATIO 24.7 (10.0-20.0); CALCIUM 10.1 MG/DL (8.5-10.1); CHLORIDE 103 MMOL/L (99-107); GLUCOSE 104 MG/DL (70-104); POTASSIUM 3.8 MMOL/L (3.5-5.1); PRO BRAIN NATRIURETIC PEPTIDE 1771 PG/ML (0-450); SODIUM 143 MMOL/L (135-145); TOTAL PROTEIN 7.3 G/DL (6.4-8.2); eGFR 33 ML/MIN
[~2025-01-27] VITALS: Ht 147.3 cm; Wt 52.8 kg
[~2025-01-27] MED LIST changes: +FURO-150 PO; +POTA-192 PO; -TRIA1TAB3 PO
[2025-01-27 15:15] VITALS: BP 156/65; PULSE 63; RESP 16; TEMP 97.5; O2SAT 95
== END | disposition home or self-care (01) ==
LOC: TAVR 09:25
PROVIDERS: ATTEND Internal Medicine Cardiovascular Disease
DX: I35.0 Nonrheumatic aortic (valve) stenosis (principal); R06.02 Shortness of breath; I65.29 Occlusion and stenosis of unspecified carotid artery
CPT/HCPCS: 36415; 80053; 83880; 85025; 85610; 85730; J7030

== ENCOUNTER 2025-04-08 17:05 | Emergency (ER) | payer MEDICARE ==
[~2025-04-08] VITALS: Ht 149.9 cm; Wt 55.0 kg
[~2025-04-08 17:05] MED LIST changes: -AMLO5TAB16 PO; -ATEN-169 PO; +METO-395 PO
--- NOTE | 2025-04-08 17:27 | ELECTROCARDIOGRAPH REPORT ---
[facility] Test Date: 2025-04-08 Test Time: 17:11:50 Pat Name: GOLDEN CABRAL Department: EMERGENCY ROOM Patient ID: [id number] Room: Gender: F Frame Coverer: NOEMY : 1940 Requested By: NINA JULIEN Order Number: [id number] Reading MD: Measurements Intervals Bock Rate: 78 P: 57 ID: [id number] QRS: 38 QRSD: 93 T: 57 QT: 413 QTc: 471 Interpretive Statements Sinus rhythm Atrial premature complexes Probable left atrial enlargement LVH with secondary repolarization abnormality Baseline wander in lead(s) II,III,aVF,V3 Please click the below link to view image of tracing.
[2025-04-08 18:37] LABS: BASOPHILS % (AUTO) 0.6 % (0-1); EOSINOPHILS # (AUTO) 0.2 X10'3 (0-0.9); EOSINOPHILS % (AUTO) 2.4 % (0-6); HEMATOCRIT 32.2 % (35.0-45.0); HEMOGLOBIN 10.5 g/dl (12.0-16.0); LYMPHOCYTES # (AUTO) 0.5 X10'3 (1.1-4.8); LYMPHOCYTES % (AUTO) 6.1 % (21-51); MEAN CORPUSCULAR HEMOGLOBIN 28.1 PG (27.0-31.0); MEAN CORPUSCULAR HGB CONC 32.6 g/dL (33.0-36.5); MEAN CORPUSCULAR VOLUME 86.4 FL (78-98); MEAN PLATELET VOLUME 7.7 FL (7.4-10.4); MONOCYTES # (AUTO) 0.7 X10'3 (0-0.9); MONOCYTES % (AUTO) 8.1 % (2-12); NEUTROPHILS # (AUTO) 6.8 X10'3 (1.8-7.7); NEUTROPHILS % (AUTO) 82.8 % (42-75); PLATELET COUNT 298 X10'3 (140-440); RED BLOOD COUNT 3.73 X10'6 (4.20-5.60); RED CELL DISTRIBUTION WIDTH 17.7 % (11.5-14.5); WHITE BLOOD COUNT 8.2 X10'3 (4.5-11.0)
[2025-04-08 18:50] LABS: ALANINE AMINOTRANSFERASE 38 U/L (12-78); ALBUMIN 3.2 G/DL (3.4-5.0); ALBUMIN/GLOBULIN RATIO 1.1 (1.1-1.5); ALKALINE PHOSPHATASE 103 IU/L (46-116); ANION GAP 7 (8-16); ASPARTATE AMINO TRANSFERASE 22 U/L (10-37); BILIRUBIN,TOTAL 0.4 MG/DL (0.1-1.0); BLOOD UREA NITROGEN 25 MG/DL (7-18); BUN/CREATININE RATIO 32.9 (10.0-20.0); CALCIUM 8.9 MG/DL (8.5-10.1); CHLORIDE 106 MMOL/L (99-107); CREATININE 0.76 MG/DL (0.40-0.90); GLUCOSE 137 MG/DL (70-104); POTASSIUM 3.1 MMOL/L (3.5-5.1); SODIUM 144 MMOL/L (135-145); TOTAL CARBON DIOXIDE 30.8 MMOL/L (24-32); TOTAL PROTEIN 6.1 G/DL (6.4-8.2); eCRCL 37 ML/MIN; eGFR 72 ML/MIN
[2025-04-08 19:38] LABS: PRO BRAIN NATRIURETIC PEPTIDE 10678 PG/ML (0-450)
[2025-04-08 20:13] LABS: BILIRUBIN,URINE NEGATIVE (Neg); CLARITY,URINE CLEAR (Clear); COLOR,URINE YELLOW (Yellow); GLUCOSE, URINE NEGATIVE (Neg); KETONES,URINE NEGATIVE (Neg); LEUKOCYTE ESTERASE ,URINE NEGATIVE (Neg); NITRITES, URINE NEGATIVE (Neg); OCCULT BLOOD,URINE NEGATIVE (Neg); PROTEIN,URINE 30 mg/dl (Neg); UROBILINOGEN,URINE 0.2 E.U/dL (0.2-1.0)
[2025-04-08 20:31] LABS: UA COLLECTION TYPE CLN CATCH MIDSTREAM
[2025-04-08 20:39] LABS: BACTERIA,URINE NONE SEEN /HPF (Neg); HYALINE CASTS 0-3 /LPF (NEGATIVE); RBC,URINE NONE SEEN /HPF (0-2); SQUAMOUS EPITHELIAL CELL,UR FEW /LPF (FEW); WBC,URINE NONE SEEN /HPF (0-4)
[2025-04-08 20:40] LABS: YEAST FEW /HPF (NEGATIVE)
--- NOTE | 2025-04-08 21:50 | RADIOLOGY REPORT ---
Clinical History sob Comparison CHEST XRAY on 01/25/2025, 2 images. Technique: A single AP/PA chest radiograph was provided for review. Without Contrast GOLDEN CABRAL, [id number] FINDINGS: Lungs: Hypoexpanded lungs without pneumothorax, focal consolidation or mass. blunting of the left la teral costophrenic angle, scarring versus effusion. Heart: Normal in size and configuration. Mediastinum: a double shadow over the cardiac silhouette may represent a hiatal hernia. Vasculature: Within normal limits. Tubes/lines: None. Osseous structures: No evidence for acute fracture. status post right shoulder total arthroplasty. Surgical clips in the axillas bilaterally. Possibly absent right breast. IMPRESSION: Low lung volumes. possible moderate to large sized hiatal hernia. Status post right shoulder arthroplasty. Normal pulmonary vasculature. Suspect right mastectomy and bilateral axillary surgeries. Small left effusion or scarring. This report was electronically signed by Hema Doyle MD on 04/08/2025 9:46:55 PM.
--- NOTE | 2025-04-08 22:14 | Physician Documentation ---
History of Present Illness ~ Chief Complaint: See Chief Complaint Stated Complaint: UNCONTROLLED BLADDER Time Seen by MD: 18:02 Primary Medical Doctor: Dr. Larios Mode of Arrival: EMS HPI 84 year old female who was recently discharged from our facility on lasix, with history of pulmonary hypertension and aortic stenosis. She was sent home on lasix and when I interview her she reports that she was urinating frequently and feeling short of breath. She deneis fever, N/V/D, chest pain. Medication Reconciliation Allergies: Coded Allergies: Tetracyclines (Unverified Allergy, Intermediate, RASH, 01/25/25) adhesive tape (Unverified Allergy, Intermediate, RASH + WILTS, 01/25/25) codeine (Unverified Allergy, Intermediate, RASH, 01/25/25) Scheduled Allopurinol (Allopurinol), 1 TAB PO DAILY, (Reported) Ascorbic Acid (Vitamin C), 2 CAP PO DAILY, (Reported) Atorvastatin Calcium (Atorvastatin Calcium), 1 TAB PO DAILY, (Reported) Calcium Citrate/Vitamin D3 (Calcium Cit-Vit D 250-200 Tab), 1 TAB PO DAILY, (Reported) Docusate Sodium (Colace), 1 CAP PO DAILY, (Reported) Furosemide* (Lasix*), 1 TAB PO BID Gabapentin (Gabapentin), 1 CAP PO BID, (Reported) Hydrocodone Bit/Acetaminophen (Hydrocodon-Acetaminophn 10-325 tablet), 1 TAB PO DAILY, (Reported) Levothyroxine Sodium (Levothyroxine Sodium), 1 TAB PO DAILY, (Reported) Losartan Potassium (Losartan Potassium), 1 TAB PO DAILY, (Reported) Metoprolol Succinate (Metoprolol Succinate), 1 TAB PO DAILY Morphine Sulfate (Morphine Sulfate Er), 1 TAB PO DAILY, (Reported) Multivitamins (Multiple Vitamin), 1 TAB PO DAILY, (Reported) Potassium Chloride (Klor-Con), 2 TAB PO DAILY Sertraline HCl (Sertraline HCl), 1 TAB PO DAILY, (Reported) Discontinued Medications Amlodipine Besylate (Amlodipine Besylate), 1 TAB PO DAILY, (Reported) Atenolol (Tenormin), 0.5 TAB PO HS, (Reported) Past Medical History Past Medical History: *CARDIOVASCULAR* Past Surgical History: no surgical history Patient History: Patient reports no known family medical history. Alcohol Use: None Drug Use: none Lives In: Home Review of Systems All Other Systems at this time: Reviewed and Negative Physical Exam Vital Signs: RN Vital Signs have been reviewed: Yes, Temperature: 99.4, Source: Oral, Heart Rate: 71, Respiratory Rate: 24, BP: 162/80, Pulse Oximetry: 98, Weight: 55.000 Oxygen Flow Rate: 4.0 Physical Exam HEENT: PERRL, moist oral mucosa, EOMI Pulmonary: No respiratory distress Cardiac: RRR, no murmur, rub or gallop GI: nondistended, soft, nontender, no guarding, no rebound MSK: no deformity Skin: w/d/i, no rash Neuro: alert, nonfocal Psych: normal affect Progress Results/Orders Results/Orders Orders - TERE MASSEY MD Chest,Single View (04/08/25 18:27) Page Hospitalist (04/08/25 ) Page Hospitalist (04/08/25 21:23) Completed Orders - TERE MASSEY MD Cbc/Diff (04/08/25 18:03) CMP (04/08/25 18:03) Chest,Single View (04/08/25 18:27) PBNP (04/08/25 18:18) Ua W/Microscopic, Cult If Ind (04/08/25 20:01) Vital Signs 04/08/25 04/08/25 04/08/25 04/08/25 17:35 17:42 19:06 19:09 Temp 99.4 Pulse 78 74 Resp 17 17 16 16 B/P (MAP) 149/72 163/80 (107) Pulse Ox 97 96 O2 Flow Rate 3.0 3.0 04/08/25 04/08/25 20:48 21:41 Pulse 76 71 Resp 22 24 B/P (MAP) 146/82 (103) 162/80 (107) Pulse Ox 100 98 O2 Flow Rate 4.0 Laboratory Tests Test 04/08/25 18:18 04/08/25 20:01 White Blood Count 8.2 Red Blood Count 3.73 L Hemoglobin 10.5 L Hematocrit 32.2 L Mean Corpuscular Volume 86.4 Mean Corpuscular Hemoglobin 28.1 Mean Corpuscular Hemoglobin Concent 32.6 L Red Cell Distribution Width 17.7 H Platelet Count 298 Mean Platelet Volume 7.7 Neutrophils (%) (Auto) 82.8 H Lymphocytes (%) (Auto) 6.1 L Monocytes (%) (Auto) 8.1 Eosinophils (%) (Auto) 2.4 Basophils (%) (Auto) 0.6 Neutrophils # (Auto) 6.8 Lymphocytes # (Auto) 0.5 L Monocytes # (Auto) 0.7 Eosinophils # (Auto) 0.2 Basophils # (Auto) 0.0 CBC Comment Sodium Level 144 Potassium Level 3.1 L Chloride Level 106 Carbon Dioxide Level 30.8 Anion Gap 7 L Blood Urea Nitrogen 25 H Creatinine 0.76 Estimated GFR/1.73 m2 72 BUN/Creatinine Ratio 32.9 H Glucose Level 137 H Calcium Level 8.9 Total Bilirubin 0.4 Aspartate Amino Transf (AST/SGOT) 22 Alanine Aminotransferase (ALT/SGPT) 38 Alkaline Phosphatase 103 Pro-B-Type Natriuretic Peptide 75592 H Total Protein 6.1 L Albumin 3.2 L Globulin 2.9 Albumin/Globulin Ratio 1.1 Chemistry Comments Urine Specimen Description Cln catch midstream Urine Color Yellow Urine Clarity Clear Urine pH 6.0 Urine Specific Wilkinson 1.025 Urine Protein 30 H Urine Glucose (UA) Negative Urine Ketones Negative Urine Occult Blood Negative Urine Nitrite Negative Urine Bilirubin Negative Urine Urobilinogen 0.2 Urine Leukocyte Esterase Negative Urine RBC None seen Urine WBC None seen Urine Squamous Epithelial Cells Few Urine Bacteria None seen Urine Hyaline Casts 0-3 Urine Yeast Few Urine Culture Indicated Not ind Volume Urine Centrifuged 10 ml Urine Comment Medical Decision Making Findings 84 year old female reports urination and shortness of breath. Workup demonstrated only chronic findings. Spoke with hospitalist service, they feel that the patient was treated and discharged already on appropriate medications, that there is nothing new to treat today, and that her CXR is improved in comparison to prior, and that she is on her home dose of oxygen, and that her chief complaint/symptoms are secondary to her lasix dosing. Recommend discharge to home to continue medications as prescribed. Differential Dx:Considerations: Include: anxiety, CHF, COPD, hyponatremia, pneumonia, pneumonitis, pneumothorax, pulmonary embolism, respiratory distress, respiratory failure Departure Disposition: 01 HOME / SELF CARE / HOMELESS Impression: Primary Impression: Medication adverse effect Condition: Stable Discharge Instructions: Basics of Medicine Management Referrals: NO PRIMARY CARE PROVIDER (PCP) Education Educated: Patient Educated regarding: diagnosis, treatment, prognosis, need for follow up Signature Scribe Signature: . Attestation: . TERE MASSEY MD April 08, 2025 22:14
[2025-04-08 23:33] VITALS: BP 163/85; PULSE 77; RESP 13; TEMP 98.5; O2SAT 98
== END 2025-04-08 23:36 | disposition home or self-care (01) ==
LOC: ER 17:06
DX: T50.1X1A Poisoning by loop [high-ceiling] diuretics, accidental (unintentional), initial encounter (principal); Z88.5 Allergy status to narcotic agent; Z88.8 Allergy status to other drugs, medicaments and biological substances; Y92.89 Other specified places as the place of occurrence of the external cause
CPT/HCPCS: 36415; 71045; 80053; 81001; 83880; 85025; 93005; 99285